=== PATIENT | female | born 2000 | race African-American/Black ===

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

== ENCOUNTER 2021-01-16 21:14 | Emergency (ER) | payer OTHER ==
[~2021-01-16 21:14] MED LIST: HUMALOG 75100 UNIT/M SC; ZOFRAN4 MG PO
== END 2021-01-16 23:21 | disposition home or self-care (01) ==
LOC: FER 21:14
DX: O23.593 Infection of other part of genital tract in pregnancy, third trimester (principal); B37.3 Candidiasis of vulva and vagina; E10.8 Type 1 diabetes mellitus with unspecified complications; Z3A.28 28 weeks gestation of pregnancy
CPT/HCPCS: 99283

== ENCOUNTER 2021-04-24 08:14 | Inpatient (IN) | payer OTHER ==
[~2021-04-24] VITALS: Ht 154.9 cm; Wt 57.3 kg
[2021-04-24 09:43] LABS: BASOPHIL 0.7 % (0-2); EOSINOPHIL 2.3 % (0-5); HCT 31.4 % (37.0-47.0); HGB 10.2 g/dl (12.5-16.0); LYMPHOCYTE 29.4 % (15-48); MCH 27.9 pg (25.0-31.0); MCHC 32.5 g/dL (32.0-36.0); MONOCYTE 10.5 % (0-12); MPV 10.8 fL (6.0-9.5); NEUTROPHIL 56.3 % (41-80); NRBC 0; PLT 388 K/uL (150-400); RBC 3.65 M/uL (4.20-5.40); RDW 12.9 % (11.5-14.0); WBC 9.9 K/uL (4.0-10.5)
[2021-04-24 10:00] LABS: BUN/CREAT RATIO (CALC) 23.7 RATIO; CREATININE 0.38 mg/dL (0.51-0.95); POTASSIUM 3.7 mmol/L (3.5-5.1)
[2021-04-24] MEDS ORDERED: ADMELOG100 UNIT/1 SC (15:42)
[2021-04-25 06:13] LABS: BASOPHIL 0.6 % (0-2); EOSINOPHIL 2.3 % (0-5); HCT 31.6 % (37.0-47.0); HGB 10.1 g/dl (12.5-16.0); MCH 27.4 pg (25.0-31.0); MCV 85.6 fL (78.0-100.0); MONOCYTE 11.4 % (0-12); MPV 10.7 fL (6.0-9.5); NEUTROPHIL 59.1 % (41-80); NRBC 0; PLT 396 K/uL (150-400); RBC 3.69 M/uL (4.20-5.40); RDW 12.9 % (11.5-14.0); WBC 10.1 K/uL (4.0-10.5)
[2021-04-25 06:25] LABS: BUN/CREAT RATIO (CALC) 17.8 RATIO; CREATININE 0.45 mg/dL (0.51-0.95); POTASSIUM 3.1 mmol/L (3.5-5.1)
[2021-04-26 06:10] LABS: BASOPHIL 0.5 % (0-2); EOSINOPHIL 1.2 % (0-5); HCT 32.5 % (37.0-47.0); HGB 10.3 g/dl (12.5-16.0); LYMPHOCYTE 19.7 % (15-48); MCH 27.3 pg (25.0-31.0); MCHC 31.7 g/dL (32.0-36.0); MCV 86.2 fL (78.0-100.0); MONOCYTE 10.3 % (0-12); MPV 11.3 fL (6.0-9.5); NRBC 0; PLT 340 K/uL (150-400); RBC 3.77 M/uL (4.20-5.40); RDW 12.9 % (11.5-14.0); WBC 12.7 K/uL (4.0-10.5)
[2021-04-26 06:24] LABS: BUN/CREAT RATIO (CALC) 15.4 RATIO; CREATININE 0.52 mg/dL (0.51-0.95); POTASSIUM 3.1 mmol/L (3.5-5.1)
[2021-04-26 11:50] LABS: HCG (URINE) SCREEN NEGATIVE (NEGATIVE)
[2021-04-26] MEDS ORDERED: AUGMENTIN 500-1 EACH PO (17:19)
[2021-04-26] MEDS ORDERED: PERCOCET 5-3251 EACH PO (17:22)
[2021-05-23] MEDS ORDERED: PERCOCET 5-3251 EACH PO (12:58)
== END 2021-04-26 16:13 | disposition home or self-care (01) | DRG 776 ==
LOC: FER 08:14 → FMS 14:21
PROVIDERS: Anesthesiology; Emergency Medicine; Internal Medicine; ADMIT Internal Medicine
PROC: 0H9U3ZZ Drainage of Left Breast, Percutaneous Approach (ICD-10-PCS; principal; 2021-04-24)
PROC: 0HB5XZZ Excision of Chest Skin, External Approach (ICD-10-PCS; 2021-04-26)
PROC: 0H95XZZ Drainage of Chest Skin, External Approach (ICD-10-PCS; 2021-04-26)
DX: O91.12 Abscess of breast associated with the puerperium (principal); O24.03 Pre-existing type 1 diabetes mellitus, in the puerperium; Z20.822 Contact with and (suspected) exposure to COVID-19; E10.9 Type 1 diabetes mellitus without complications; O90.81 Anemia of the puerperium; D64.9 Anemia, unspecified; E87.6 Hypokalemia; B95.7 Other staphylococcus as the cause of diseases classified elsewhere; B95.1 Streptococcus, group B, as the cause of diseases classified elsewhere; F17.200 Nicotine dependence, unspecified, uncomplicated
CPT/HCPCS: 36415; 71260; 80048; 82962; 83036; 84703; 85025; 87070; 87075; 87077; 87205; G0378; J2250; J2405; J2704; J3010; J7120; Q9967; U0002

== ENCOUNTER → 2021-05-23 | Day surgery (SDC) | payer OTHER ==
[~2021-05-23] VITALS: Ht 154.9 cm; Wt 54.4 kg
[~2021-05-23] MED LIST changes: +ADMELOG100 UNIT/1 SC; +AUGMENTIN 500-1 EACH PO; +BACTRIM DS TAB1 EACH PO; +ONDANSETRON ODT4 MG SL; +PERCOCET 5-3251 EACH PO
[2021-05-23 10:38] LABS: HCG (URINE) SCREEN NEGATIVE (NEGATIVE)
== END | disposition home or self-care (01) ==
LOC: FAS 10:19
PROVIDERS: Anesthesiology
DX: O91.12 Abscess of breast associated with the puerperium (principal); O24.93 Unspecified diabetes mellitus in the puerperium; E10.9 Type 1 diabetes mellitus without complications; Z79.4 Long term (current) use of insulin; O34.219 Maternal care for unspecified type scar from previous cesarean delivery; F17.200 Nicotine dependence, unspecified, uncomplicated
CPT/HCPCS: 82962; 84703; J2250; J2405; J2704; J3010; J7120

== ENCOUNTER 2021-06-18 23:41 | Emergency (ER) | payer OTHER ==
[~2021-06-18 23:41] MED LIST changes: -BACTRIM DS TAB1 EACH PO; -ONDANSETRON ODT4 MG SL
[2021-06-19 01:20] LABS: BASOPHIL 0.3 % (0-2); EOSINOPHIL 0.2 & (0-5); HCT 33.9 % (37.0-47.0); HGB 11.2 g/dl (12.5-16.0); MCH 27.8 pg (25.0-31.0); MCV 84.1 fL (78.0-100.0); MONOCYTE 12.3 % (0-12); MPV 11.7 fL (6.0-9.5); NEUTROPHIL 78.9 % (41-80); PLT 235 K/uL (150-400); RBC 4.03 M/uL (4.20-5.40); RDW 14.1 % (11.5-14.0); WBC 12.31 K/uL (4.0-10.5)
[2021-06-19 01:26] LABS: BILIRUBIN 2+ mg/dL (NEGATIVE); BLOOD 2+ Ery/uL (NEGATIVE); COLOR YELLOW (YELLOW); GLUCOSE (U) 3+ mg/dL (NORMAL); LEUKOCYTES 1+ Leu/uL (NEGATIVE); NITRITE NEGATIVE (NEGATIVE); PROTEIN 2+ mg/dL (NEGATIVE)
[2021-06-19 01:30] LABS: CLARITY HAZY (CLEAR)
[2021-06-19 01:34] LABS: BACTERIA 3+; URINARY WBC TNTC
[2021-06-19 01:51] LABS: ALBUMIN 3.2 g/dL (3.4-5.0); BILIRUBIN - TOTAL 0.7 mg/dL (0.2-1.0); CREATININE 0.69 mg/dL (0.51-0.95); GLOBULIN (CALCULATION) 4.2 g/dL; POTASSIUM 3.5 mmol/L (3.5-5.1); TOTAL PROTEIN 7.4 g/dL (6.4-8.2)
[2021-06-19 01:54] LABS: LACTIC ACID 1.2 mmol/L (0.4-1.9)
[2021-06-19 01:58] LABS: CORONAVIRUS 2019 SARS-COV-2 NEGATIVE (NEGATIVE); INFLUENZA A NAA NEGATIVE (NEGATIVE)
[2021-06-19] MEDS ORDERED: ONDANSETRON ODT4 MG SL (04:28)
[2021-06-19] MEDS ORDERED: BACTRIM DS TAB1 EACH PO (04:28)
[2021-06-19] MEDS ORDERED: PERCOCET 5-3251 EACH PO (04:28)
== END 2021-06-19 06:40 | disposition home or self-care (01) ==
LOC: FER 23:41
PROVIDERS: Emergency Medicine Emergency Medical Services
DX: N10 Acute pyelonephritis (principal); E10.65 Type 1 diabetes mellitus with hyperglycemia; Z20.822 Contact with and (suspected) exposure to COVID-19; F17.290 Nicotine dependence, other tobacco product, uncomplicated
CPT/HCPCS: 36415; 71045; 80053; 81001; 82150; 83605; 84145; 84484; 85025; 87040; 87077; 87088; 87186; 93005; J1885; J2270; J2405; J7030; J7120; U0002